=== PATIENT | male | born 1925 | race Caucasian/White ===

== ENCOUNTER 2016-09-18 18:10 | Outpatient (CLI) | payer MEDICARE, OTHER | END 2016-09-18 18:11 | disposition critical access hospital (66) | DX: M25.561 Pain in right knee (principal); W18.30XA Fall on same level, unspecified, initial encounter; Y92.511 Restaurant or cafe as the place of occurrence of the external cause | CPT/HCPCS: A0425; A0429 ==

== ENCOUNTER 2016-09-18 18:28 | Emergency (ER) | payer MEDICARE, OTHER ==
[2016-09-18] MEDS ORDERED: HYDROcod/ACET 5/325 Prepack 6 PO STA (18:36)
[2016-09-18] MEDS ORDERED: HYDROcod/ACETAM 5/325 MG TABLET PO STA ×2 (18:37→20:23)
[2016-09-18] MEDS ORDERED: HYDROcod/ACETAM 5/325 MG TABLET ONE ×2 (18:38→20:25)
[2016-09-18] MEDS ORDERED: traZODone 50 MG TABLET PO SCH (23:45)
[2016-09-18] MEDS ORDERED: fentaNYL 50 MCG PATCH TOP SCH (23:45)
[2016-09-18] MEDS ORDERED: ONDANSETRON 4 MG/2 ML VIAL IVP PRN (23:49)
[2016-09-18] MEDS ORDERED: IBUPROFEN 400 MG TABLET PO PRN (23:49)
[2016-09-18] MEDS ORDERED: ACETAMINOPHEN 325 MG TABLET PO PRN (23:49)
[2016-09-18] MEDS ORDERED: ONDANSETRON ODT 4 MG TABLET TL PRN (23:49)
[2016-09-18] MEDS ORDERED: SODIUM CHLORIDE FLUSH 0.9% 10 ML SYRINGE IVP PRN (23:49)
[2016-09-18] MEDS ORDERED: oxyCODONE 5 MG TABLET PO PRN (23:51)
[2016-09-19] MEDS ORDERED: HYDROcod/ACET 5/325 Prepack 6 PO STA (00:16)
[2016-09-19] MEDS ORDERED: HYDROcod/ACET 5/325 Prepack 6 PO ONE (00:18)
[2016-09-19] MEDS ORDERED: SODIUM CHLORIDE FLUSH 0.9% 10 ML SYRINGE IVP SCH (06:00)
[2016-09-19] MEDS ORDERED: POLYETHYLENE GLYCOL 3350 17 GM PACKET PO SCH (09:00)
[2016-09-19] MEDS ORDERED: LIDOCAINE PATCH 5% TOP SCH (09:00)
[2016-09-19] MEDS ORDERED: NON FORMULARY MED (Lisinopril [Lisinopril] 10 MG) PO SCH (09:00)
[2016-09-19] MEDS ORDERED: NON FORMULARY MED (Enzalutamide [Xtandi] 160 MG) PO SCH (09:00)
[2016-09-19] MEDS ORDERED: CITALOPRAM 10 MG TABLET PO SCH (09:00)
== END 2016-09-19 01:05 | disposition home or self-care (01) ==
DX: M25.561 Pain in right knee (principal); R26.2 Difficulty in walking, not elsewhere classified; W01.0XXA Fall on same level from slipping, tripping and stumbling without subsequent striking against object, initial encounter; Y92.480 Sidewalk as the place of occurrence of the external cause; M85.861 Other specified disorders of bone density and structure, right lower leg; C61 Malignant neoplasm of prostate; C79.9 Secondary malignant neoplasm of unspecified site
CPT/HCPCS: 73560; 73590; 73700; 99284; 99285; A9270